=== PATIENT | male | born 1965 | race Hispanic/Latino ===

== ENCOUNTER 2017-09-07 13:59 | Inpatient (IN) | payer MEDICARE ==
[~2017-09-07] VITALS: Ht 170.2 cm; Wt 48.3 kg
[~2017-09-07 13:59] MED LIST: CYAN10007 IM; FOLI1TAB15 PO; GABA-531 JT; HYDR2TAB5 PO; IRON1CAP3 PO; LACT10SO9 PO; LORA0.5T2 PO; METO5TAB2 PO; MIDO5TAB PO; TRAM50TA4 PEG
[2017-09-07] MEDS ORDERED: SODIUM CHLORIDE 0.9% 1000ML 1,000 ML IV ONE (14:52)
[2017-09-07] MEDS ORDERED: HYDROMORPHONE 1 MG/1 ML AMP ONE (14:52)
[2017-09-07] MEDS ORDERED: ONDANSETRON HCL 4 MG/2 ML VIAL ONE (14:52)
[2017-09-07 15:01] LABS: BASOPHILS % (AUTO) 0.4 % (0.0-5.0); EOSINOPHILS % (AUTO) 0.2 % (0.0-8.0); HEMATOCRIT 25.4 % (42-54); LYMPHOCYTES % (AUTO) 8.5 % (21.0-51.0); MEAN CORPUSCULAR HEMOGLOBIN 32.9 pg (27.0-33.0); MEAN CORPUSCULAR HGB CONC 33.4 g/dL (32.0-36.0); MEAN CORPUSCULAR VOLUME 98.5 fL (79-99); MONOCYTES % (AUTO) 7.6 % (3.0-13.0); NEUTROPHILS % (AUTO) 83.3 % (40.0-77.0); PLATELET COUNT (AUTO) 332 K/uL (130-400); RED BLOOD CELL COUNT(AUTO) 2.58 MIL/uL (4.50-6.20); RED CELL DISTRIBUTION WIDTH 14.4 % (11.0-15.5)
[2017-09-07 15:12] LABS: CARBON DIOXIDE 33 mmol/L (21-32); CHLORIDE 103 mmol/L (101-111); CREATININE 0.4 mg/dL (0.5-1.5); GLOMERULAR FILTR. RATE CALC 243 mL/min (>60); GLUCOSE,RANDOM 79 mg/dL (70-105); POTASSIUM 3.3 mmol/L (3.5-5.1); SODIUM SERUM 138 mmol/L (136-145); UREA NITROGEN, BLOOD 15 mg/dL (7-18)
[2017-09-07 15:16] LABS: ALANINE AMINOTRANSFERASE 26 U/L (12-78); ALBUMIN 1.4 g/dL (3.5-5.0); AMYLASE 21 U/L (25-115); ASPARTATE AMINOTRANSFERASE 34 U/L (10-37); BILIRUBIN,TOTAL 0.2 mg/dL (0.2-1.0); LIPASE < 50 U/L (114-286); TOTAL PROTEIN, SERUM 6.1 g/dL (6.0-8.3)
[2017-09-07] MEDS ORDERED: IOPAMIDOL-370 75 ML VIAL IV ONE (15:17)
[2017-09-07] MEDS ORDERED: CEFEPIME HCL 1 GM VIAL ONE (15:37)
[2017-09-07] MEDS ORDERED: LEVOFLOXACIN 500 MG/D5W 100 ML 100 ML ONE (15:38)
[2017-09-07 16:42] LABS: APPEARANCE,URINE Clear (CLEAR); BILIRUBIN,URINE Negative (NEGATIVE); COLOR,URINE Yellow (YELLOW); GLUCOSE, URINE (UA) Negative (NEGATIVE); KETONES,URINE Negative (NEGATIVE); LEUKOCYTE ESTERASE ,URINE Negative (NEGATIVE); NITRATE,URINE Negative (NEGATIVE); OCCULT BLOOD,URINE Negative (NEGATIVE); PH,URINE >=9.0 (5.0-8.0); PROTEIN,URINE Negative (NEGATIVE); UROBILINOGEN,URINE 0.2 mg/dL (0.2-1.0)
[2017-09-07 16:55] LABS: INR 0.97 (0.85-1.15); PARTIAL THROMBOPLASTIN TIME 38.7 SEC (26.3-35.5); PROTHROMBIN TIME 10.2 SEC (9.6-11.6)
[2017-09-07] MEDS ORDERED: HYDROMORPHONE 4MG/ML 1ML VIAL ONE (17:06)
[2017-09-07] MEDS ORDERED: MAG HYDROX/AL HYDROX/SIMETH ES 30 ML SUSP UDCUP PO PRN (18:00)
[2017-09-07] MEDS ORDERED: HYDROMORPHONE 1 MG/1 ML AMP IV PRN (18:00)
[2017-09-07] MEDS ORDERED: ACETAMINOPHEN 325 MG TAB PO PRN ×2 (18:00)
[2017-09-07] MEDS ORDERED: GUAIFENESIN-DM 200/20 MG 10 ML PO PRN (18:00)
[2017-09-07 20:05] VITALS: BP 129/88
[2017-09-07] MEDS ORDERED: MEPERIDINE-PF 25 MG/ML SYG IVP PRN (21:30)
[2017-09-07] MEDS: FAMOTIDINE/PF 20 MG/2 ML VIAL IV SCH (22:12)
[2017-09-07] MEDS ORDERED: POTASSIUM CHLORIDE 20 MEQ ERTAB PO PRN (23:00)
[2017-09-07] MEDS ORDERED: POTASSIUM CHLORIDE 10% ELIXIR 20 MEQ/15 ML UDCUP PO PRN (23:00)
[2017-09-07] MEDS ORDERED: LIDOCAINE HCL-MPF 1% 2ML VIAL IVP PRN (23:00)
[2017-09-07] MEDS: MORPHINE SULFATE 2 MG/ML 1ML SYG IVP PRN (23:47)
[2017-09-07 23:51] VITALS: BP 125/83
[2017-09-08] MEDS ORDERED: METOCLOPRAMIDE 5 MG TABLET PO PRN
[2017-09-08] MEDS ORDERED: TRAMADOL HCL 50 MG TABLET PO PRN
[2017-09-08] MEDS: LORAZEPAM 0.5 MG TABLET PO PRN ×3 (01:42→23:44)
[2017-09-08] MEDS: IPRATROPIUM/ALBUTEROL SULFATE 3 ML SOLUTION IH SCH ×6 (02:19→22:53)
[2017-09-08 03:43] VITALS: BP 125/83
[2017-09-08] MEDS: MORPHINE SULFATE 2 MG/ML 1ML SYG IVP PRN ×3 (03:57→13:51)
[2017-09-08 04:08] LABS: BASOPHILS % (AUTO) 0.5 % (0.0-5.0); EOSINOPHILS % (AUTO) 0.4 % (0.0-8.0); HEMATOCRIT 23.8 % (42-54); LYMPHOCYTES % (AUTO) 9.4 % (21.0-51.0); MEAN CORPUSCULAR HEMOGLOBIN 34.4 pg (27.0-33.0); MEAN CORPUSCULAR HGB CONC 34.8 g/dL (32.0-36.0); MEAN CORPUSCULAR VOLUME 98.8 fL (79-99); MONOCYTES % (AUTO) 10.1 % (3.0-13.0); NEUTROPHILS % (AUTO) 79.6 % (40.0-77.0); PLATELET COUNT (AUTO) 330 K/uL (130-400); RED BLOOD CELL COUNT(AUTO) 2.41 MIL/uL (4.50-6.20); RED CELL DISTRIBUTION WIDTH 14.3 % (11.0-15.5); WHITE BLOOD COUNT (AUTO) 6.1 K/uL (4.8-10.8)
[2017-09-08 04:19] LABS: CREATININE 0.5 mg/dL (0.5-1.5); POTASSIUM 3.4 mmol/L (3.5-5.1)
[2017-09-08 04:31] LABS: B-TYPE NATRIURETIC PEPTIDE 97 pg/mL (0-100)
[2017-09-08] MEDS: POTASSIUM CHLORIDE 20MEQ/100ML 100 ML IV PRN (06:46)
[2017-09-08 07:18] VITALS: BP 133/86
[2017-09-08] MEDS: LEVOFLOXACIN 500 MG/D5W 100 ML 100 ML IV SCH (08:23)
[2017-09-08] MEDS: FAMOTIDINE/PF 20 MG/2 ML VIAL IV SCH ×2 (08:24→21:02)
[2017-09-08] MEDS: GABAPENTIN 300 MG CAPSULE PO SCH (08:27)
[2017-09-08] MEDS: IRON POLYSACCHARIDES COMPLEX 150 MG CAPSULE PO SCH (08:27)
[2017-09-08] MEDS: FOLIC ACID 1 MG TABLET PO SCH (08:27)
[2017-09-08] MEDS ORDERED: SODIUM CHLORIDE 0.9% 500ML 500 ML IV ONE (08:30)
[2017-09-08] MEDS: ONDANSETRON HCL 4 MG/2 ML VIAL IV PRN ×2 (08:35→13:51)
[2017-09-08] MEDS: TRAMADOL HCL 50 MG TABLET PO PRN ×3 (10:13→23:45)
[2017-09-08] MEDS: LORAZEPAM 2 MG/ML 1 ML VIAL IVP PRN ×2 (10:27→16:42)
[2017-09-08 11:15] VITALS: BP 113/76
[2017-09-08] MEDS ORDERED: LEVOFLOXACIN 500 MG/D5W 100 ML 100 ML IV SCH (15:00)
[2017-09-08 16:30] VITALS: BP 123/76
[2017-09-08 16:52] LABS: APPEARANCE BODY FLUID CLEAR (CLEAR); COLOR,BODY FLUID LT YELLOW (LT YELLOW); SPECIMENTYPE,BODY FLUID RT THORACENTESIS; TOTAL VOLUME,BODY FLUID 800 mL
[2017-09-08 16:54] LABS: PH, BODY FLUID 8
[2017-09-08 17:02] LABS: BODY FLUID RBC 50 /cu. mm.; BODY FLUID WBC 69 /cu. mm.
[2017-09-08 17:07] LABS: GLUCOSE,BODY FLUID 123 mg/dL (1-40)
[2017-09-08 17:16] LABS: BF LYMPHOCYTE 27 %; BF MESOTHELIAL 1 %; BF MONOCYTE 45 %
[2017-09-08] MEDS ORDERED: IRON POLYSACCHARIDES COMPLEX 150 MG CAPSULE PO SCH (17:30)
[2017-09-08 19:30] VITALS: BP 115/80
[2017-09-08] MEDS: MORPHINE SULFATE 4 MG/1ML SYG IVP PRN (21:05)
[2017-09-09 00:15] VITALS: BP 115/81
[2017-09-09] MEDS: MORPHINE SULFATE 2 MG/ML 1ML SYG IVP PRN ×3 (01:34→21:32)
[2017-09-09] MEDS: IPRATROPIUM/ALBUTEROL SULFATE 3 ML SOLUTION IH SCH ×5 (01:54→19:33)
[2017-09-09 04:00] VITALS: BP 122/82
[2017-09-09 04:01] LABS: BASOPHILS % (AUTO) 0.2 % (0.0-5.0); EOSINOPHILS % (AUTO) 0.3 % (0.0-8.0); HEMATOCRIT 25.1 % (42-54); LYMPHOCYTES % (AUTO) 8.6 % (21.0-51.0); MEAN CORPUSCULAR HEMOGLOBIN 33.3 pg (27.0-33.0); MEAN CORPUSCULAR HGB CONC 33.8 g/dL (32.0-36.0); MEAN CORPUSCULAR VOLUME 98.4 fL (79-99); MONOCYTES % (AUTO) 9.5 % (3.0-13.0); NEUTROPHILS % (AUTO) 81.4 % (40.0-77.0); PLATELET COUNT (AUTO) 391 K/uL (130-400); RED BLOOD CELL COUNT(AUTO) 2.55 MIL/uL (4.50-6.20); RED CELL DISTRIBUTION WIDTH 14.2 % (11.0-15.5); WHITE BLOOD COUNT (AUTO) 6.3 K/uL (4.8-10.8)
[2017-09-09 04:04] LABS: CREATININE 0.5 mg/dL (0.5-1.5); POTASSIUM 3.6 mmol/L (3.5-5.1)
[2017-09-09 04:15] LABS: B-TYPE NATRIURETIC PEPTIDE 54 pg/mL (0-100)
[2017-09-09 07:00] VITALS: BP 111/76
[2017-09-09] MEDS: LEVOFLOXACIN 500 MG/D5W 100 ML 100 ML IV SCH (08:56)
[2017-09-09] MEDS: GABAPENTIN 300 MG CAPSULE PO SCH (08:57)
[2017-09-09] MEDS: FOLIC ACID 1 MG TABLET PO SCH (08:57)
[2017-09-09] MEDS: IRON POLYSACCHARIDES COMPLEX 150 MG CAPSULE PO SCH (08:57)
[2017-09-09] MEDS: TRAMADOL HCL 50 MG TABLET PO PRN (08:57)
[2017-09-09] MEDS: LORAZEPAM 2 MG/ML 1 ML VIAL IVP PRN ×3 (08:58→23:14)
[2017-09-09] MEDS: FAMOTIDINE/PF 20 MG/2 ML VIAL IV SCH ×2 (08:58→21:32)
[2017-09-09] MEDS: ENOXAPARIN SODIUM 40 MG/0.4 ML SYRINGE SQ SCH (09:00)
[2017-09-09] MEDS: MORPHINE SULFATE 4 MG/1ML SYG IVP PRN (10:42)
[2017-09-09] MEDS: POTASSIUM CHLORIDE 20MEQ/100ML 100 ML IV PRN (10:43)
[2017-09-09 11:00] VITALS: BP 113/81
[2017-09-09] MEDS: HYDROMORPHONE HCL 2 MG/ML VIAL IVP PRN ×2 (13:18→18:35)
[2017-09-09 16:00] VITALS: BP 104/76
[2017-09-09 20:58] VITALS: BP 110/76
[2017-09-10 00:16] VITALS: BP 122/81
[2017-09-10] MEDS: HYDROMORPHONE HCL 2 MG/ML VIAL IVP PRN ×3 (01:23→18:02)
[2017-09-10] MEDS: MORPHINE SULFATE 2 MG/ML 1ML SYG IVP PRN (03:47)
[2017-09-10 04:47] VITALS: BP 110/75
[2017-09-10] MEDS: IPRATROPIUM/ALBUTEROL SULFATE 3 ML SOLUTION IH SCH ×4 (05:47→21:35)
[2017-09-10] MEDS: LORAZEPAM 2 MG/ML 1 ML VIAL IVP PRN ×3 (06:50→21:26)
[2017-09-10 06:56] LABS: BASOPHILS % (AUTO) 0.3 % (0.0-5.0); EOSINOPHILS % (AUTO) 1.1 % (0.0-8.0); HEMATOCRIT 22.8 % (42-54); LYMPHOCYTES % (AUTO) 8.9 % (21.0-51.0); MEAN CORPUSCULAR HEMOGLOBIN 35.2 pg (27.0-33.0); MEAN CORPUSCULAR HGB CONC 35.7 g/dL (32.0-36.0); MEAN CORPUSCULAR VOLUME 98.7 fL (79-99); MONOCYTES % (AUTO) 10.1 % (3.0-13.0); NEUTROPHILS % (AUTO) 79.6 % (40.0-77.0); PLATELET COUNT (AUTO) 363 K/uL (130-400); RED BLOOD CELL COUNT(AUTO) 2.31 MIL/uL (4.50-6.20); RED CELL DISTRIBUTION WIDTH 14.3 % (11.0-15.5); WHITE BLOOD COUNT (AUTO) 7.2 K/uL (4.8-10.8)
[2017-09-10 07:00] VITALS: BP 105/75
[2017-09-10 07:23] LABS: CREATININE 0.4 mg/dL (0.5-1.5); POTASSIUM 3.6 mmol/L (3.5-5.1)
[2017-09-10 07:34] LABS: B-TYPE NATRIURETIC PEPTIDE 37 pg/mL (0-100)
[2017-09-10] MEDS: LEVOFLOXACIN 500 MG/D5W 100 ML 100 ML IV SCH (09:14)
[2017-09-10] MEDS: GABAPENTIN 300 MG CAPSULE PO SCH (09:15)
[2017-09-10] MEDS: MORPHINE SULFATE 4 MG/1ML SYG IVP PRN ×2 (09:15→13:42)
[2017-09-10] MEDS: FAMOTIDINE/PF 20 MG/2 ML VIAL IV SCH ×2 (09:15→21:25)
[2017-09-10] MEDS: ENOXAPARIN SODIUM 40 MG/0.4 ML SYRINGE SQ SCH (09:16)
[2017-09-10] MEDS: FOLIC ACID 1 MG TABLET PO SCH (09:16)
[2017-09-10] MEDS: IRON POLYSACCHARIDES COMPLEX 150 MG CAPSULE PO SCH (09:16)
[2017-09-10 11:00] VITALS: BP 105/73
[2017-09-10 15:37] VITALS: BP 100/71
[2017-09-10] MEDS: TRAMADOL HCL 50 MG TABLET PO PRN (15:59)
[2017-09-10 20:33] VITALS: BP 105/73
[2017-09-11] VITALS (7 sets, daily range): BP systolic 102–116; BP diastolic 71–79
[2017-09-11] MEDS: HYDROMORPHONE HCL 2 MG/ML VIAL IVP PRN ×3 (02:22→12:17)
[2017-09-11] MEDS: MORPHINE SULFATE 4 MG/1ML SYG IVP PRN ×2 (04:23→10:04)
[2017-09-11] MEDS: IPRATROPIUM/ALBUTEROL SULFATE 3 ML SOLUTION IH SCH ×3 (06:20→21:35)
[2017-09-11] MEDS: LEVOFLOXACIN 500 MG/D5W 100 ML 100 ML IV SCH (10:03)
[2017-09-11] MEDS: FAMOTIDINE/PF 20 MG/2 ML VIAL IV SCH ×2 (10:04→20:28)
[2017-09-11] MEDS: GABAPENTIN 300 MG CAPSULE PO SCH (10:04)
[2017-09-11] MEDS: FOLIC ACID 1 MG TABLET PO SCH (10:04)
[2017-09-11] MEDS: LORAZEPAM 0.5 MG TABLET PO PRN (10:04)
[2017-09-11] MEDS: IRON POLYSACCHARIDES COMPLEX 150 MG CAPSULE PO SCH (10:04)
[2017-09-11] MEDS: ENOXAPARIN SODIUM 40 MG/0.4 ML SYRINGE SQ SCH (10:06)
[2017-09-11] MEDS: TRAMADOL HCL 50 MG TABLET PO SCH ×3 (13:10→20:23)
[2017-09-11] MEDS: HYDROMORPHONE HCL 2 MG/ML VIAL IVP SCH ×2 (15:59→20:24)
[2017-09-11] MEDS ORDERED: FAMOTIDINE/PF 20 MG/2 ML VIAL IV ONE (20:17)
[2017-09-12] MEDS: HYDROMORPHONE HCL 2 MG/ML VIAL IVP SCH ×6 (00:38→20:30)
[2017-09-12 03:15] VITALS: BP 112/75
[2017-09-12 03:55] LABS: HEMATOCRIT 25.6 % (42-54); MEAN CORPUSCULAR HEMOGLOBIN 33.2 pg (27.0-33.0); MEAN CORPUSCULAR HGB CONC 33.2 g/dL (32.0-36.0); MEAN CORPUSCULAR VOLUME 99.9 fL (79-99); PLATELET COUNT (AUTO) 386 K/uL (130-400); RED BLOOD CELL COUNT(AUTO) 2.56 MIL/uL (4.50-6.20); RED CELL DISTRIBUTION WIDTH 14.5 % (11.0-15.5)
[2017-09-12] MEDS: TRAMADOL HCL 50 MG TABLET PO SCH ×6 (04:00→22:08)
[2017-09-12 04:05] LABS: CREATININE 0.5 mg/dL (0.5-1.5); POTASSIUM 3.8 mmol/L (3.5-5.1)
[2017-09-12] MEDS: IPRATROPIUM/ALBUTEROL SULFATE 3 ML SOLUTION IH SCH ×3 (06:25→22:34)
[2017-09-12 08:26] VITALS: BP 101/64
[2017-09-12] MEDS: ENOXAPARIN SODIUM 40 MG/0.4 ML SYRINGE SQ SCH (08:40)
[2017-09-12] MEDS: GABAPENTIN 300 MG CAPSULE PO SCH (08:40)
[2017-09-12] MEDS: LEVOFLOXACIN 500 MG/D5W 100 ML 100 ML IV SCH (08:40)
[2017-09-12] MEDS: FAMOTIDINE/PF 20 MG/2 ML VIAL IV SCH ×2 (08:40→20:23)
[2017-09-12] MEDS: FOLIC ACID 1 MG TABLET PO SCH (08:40)
[2017-09-12] MEDS: IRON POLYSACCHARIDES COMPLEX 150 MG CAPSULE PO SCH (08:41)
[2017-09-12 11:52] VITALS: BP 102/71
[2017-09-12] MEDS: LORAZEPAM 2 MG/ML 1 ML VIAL IVP PRN ×2 (14:14→22:07)
[2017-09-12 16:00] VITALS: BP 103/74
[2017-09-12 19:00] VITALS: BP 118/76
[2017-09-12 23:00] VITALS: BP 110/75
[2017-09-13] MEDS: HYDROMORPHONE HCL 2 MG/ML VIAL IVP SCH ×6 (00:20→20:54)
[2017-09-13] MEDS: TRAMADOL HCL 50 MG TABLET PO SCH ×6 (02:07→22:21)
[2017-09-13 04:00] VITALS: BP 111/74
[2017-09-13 04:05] LABS: HEMATOCRIT 22.9 % (42-54); MEAN CORPUSCULAR HEMOGLOBIN 32.9 pg (27.0-33.0); MEAN CORPUSCULAR HGB CONC 33.3 g/dL (32.0-36.0); MEAN CORPUSCULAR VOLUME 98.8 fL (79-99); PLATELET COUNT (AUTO) 406 K/uL (130-400); RED BLOOD CELL COUNT(AUTO) 2.31 MIL/uL (4.50-6.20); RED CELL DISTRIBUTION WIDTH 14.8 % (11.0-15.5); WHITE BLOOD COUNT (AUTO) 9.4 K/uL (4.8-10.8)
[2017-09-13 04:23] LABS: CREATININE 0.5 mg/dL (0.5-1.5); POTASSIUM 3.6 mmol/L (3.5-5.1)
[2017-09-13] MEDS: IPRATROPIUM/ALBUTEROL SULFATE 3 ML SOLUTION IH SCH ×3 (06:37→22:05)
[2017-09-13 08:00] VITALS: BP 109/77
[2017-09-13] MEDS: LEVOFLOXACIN 500 MG/D5W 100 ML 100 ML IV SCH (08:11)
[2017-09-13] MEDS: IRON POLYSACCHARIDES COMPLEX 150 MG CAPSULE PO SCH (08:12)
[2017-09-13] MEDS: GABAPENTIN 300 MG CAPSULE PO SCH (08:12)
[2017-09-13] MEDS: FOLIC ACID 1 MG TABLET PO SCH (08:12)
[2017-09-13] MEDS: ENOXAPARIN SODIUM 40 MG/0.4 ML SYRINGE SQ SCH (09:00)
[2017-09-13] MEDS: LORAZEPAM 2 MG/ML 1 ML VIAL IVP PRN (09:51)
[2017-09-13] MEDS: FAMOTIDINE/PF 20 MG/2 ML VIAL IV SCH ×2 (09:51→20:54)
[2017-09-13 12:00] VITALS: BP 99/67
[2017-09-13 16:00] VITALS: BP 103/71
[2017-09-13 19:00] VITALS: BP 110/76
[2017-09-13] MEDS: ZOLPIDEM TARTRATE 5 MG TAB PO SCH (20:53)
[2017-09-14] VITALS (7 sets, daily range): BP systolic 104–132; BP diastolic 70–84
[2017-09-14] MEDS: TRAMADOL HCL 50 MG TABLET PO SCH ×6 (02:43→22:13)
[2017-09-14] MEDS: HYDROMORPHONE HCL 2 MG/ML VIAL IVP SCH ×6 (02:44→20:32)
[2017-09-14 04:02] LABS: HEMATOCRIT 21.4 % (42-54); MEAN CORPUSCULAR HEMOGLOBIN 33.9 pg (27.0-33.0); MEAN CORPUSCULAR HGB CONC 34.1 g/dL (32.0-36.0); MEAN CORPUSCULAR VOLUME 99.6 fL (79-99); PLATELET COUNT (AUTO) 387 K/uL (130-400); RED BLOOD CELL COUNT(AUTO) 2.15 MIL/uL (4.50-6.20); RED CELL DISTRIBUTION WIDTH 14.5 % (11.0-15.5); WHITE BLOOD COUNT (AUTO) 9.1 K/uL (4.8-10.8)
[2017-09-14 04:25] LABS: CREATININE 0.5 mg/dL (0.5-1.5); POTASSIUM 3.6 mmol/L (3.5-5.1)
[2017-09-14] MEDS: IPRATROPIUM/ALBUTEROL SULFATE 3 ML SOLUTION IH SCH ×3 (07:04→22:05)
[2017-09-14] MEDS: ENOXAPARIN SODIUM 40 MG/0.4 ML SYRINGE SQ SCH (08:18)
[2017-09-14] MEDS: FOLIC ACID 1 MG TABLET PO SCH (08:18)
[2017-09-14] MEDS: IRON POLYSACCHARIDES COMPLEX 150 MG CAPSULE PO SCH (08:18)
[2017-09-14] MEDS: FAMOTIDINE/PF 20 MG/2 ML VIAL IV SCH ×2 (08:18→22:04)
[2017-09-14] MEDS: GABAPENTIN 300 MG CAPSULE PO SCH (08:18)
[2017-09-14] MEDS: LORAZEPAM 2 MG/ML 1 ML VIAL IVP PRN (19:00)
[2017-09-14] MEDS: ZOLPIDEM TARTRATE 5 MG TAB PO SCH (22:04)
[2017-09-15] MEDS: HYDROMORPHONE HCL 2 MG/ML VIAL IVP SCH ×6 (00:33→20:13)
[2017-09-15] MEDS: TRAMADOL HCL 50 MG TABLET PO SCH ×6 (01:51→22:02)
[2017-09-15 04:06] VITALS: BP 106/75
[2017-09-15 05:23] LABS: HEMATOCRIT 21.2 % (42-54)
[2017-09-15] MEDS: IPRATROPIUM/ALBUTEROL SULFATE 3 ML SOLUTION IH SCH ×3 (07:06→18:52)
[2017-09-15 08:28] VITALS: BP 108/78
[2017-09-15] MEDS: FAMOTIDINE/PF 20 MG/2 ML VIAL IV SCH ×2 (09:14→20:13)
[2017-09-15] MEDS: IRON POLYSACCHARIDES COMPLEX 150 MG CAPSULE PO SCH (09:16)
[2017-09-15] MEDS: FOLIC ACID 1 MG TABLET PO SCH (09:17)
[2017-09-15] MEDS: GABAPENTIN 300 MG CAPSULE PO SCH (09:17)
[2017-09-15] MEDS: ENOXAPARIN SODIUM 40 MG/0.4 ML SYRINGE SQ SCH (09:18)
[2017-09-15 11:34] VITALS: BP 105/73
[2017-09-15] MEDS: LORAZEPAM 0.5 MG TABLET PO PRN ×2 (13:49→18:56)
[2017-09-15] MEDS ORDERED: VANCOMYCIN PROTOCOL PER PHARMACY IV SCH (14:45)
[2017-09-15] MEDS ORDERED: COMPOUND IV REFRIGERATED 1 EACH IVSOLN MISC PRN (15:15)
[2017-09-15 15:44] VITALS: BP 101/66
[2017-09-15] MEDS: ZOSYN 3.375GM+NS 50ML 50 ML IV SCH ×2 (16:45→22:54)
[2017-09-15] MEDS: VANCOMYCIN 750MG + NS 250 ML IV SCH ×2 (18:59)
[2017-09-15 19:00] VITALS: BP 117/74
[2017-09-15] MEDS: ZOLPIDEM TARTRATE 5 MG TAB PO SCH (20:13)
[2017-09-15] MEDS ORDERED: SODIUM CHLORIDE 0.9% 250 ML IV ONE (22:22)
[2017-09-15] MEDS ORDERED: SODIUM CHLORIDE 0.9% 250 ML IV SCH (22:30)
[2017-09-15] MEDS ORDERED: ZOSYN 3.375GM+NS 50ML 50 ML IV ONE (22:46)
[2017-09-15 23:00] VITALS: BP 109/73
[2017-09-16] MEDS: HYDROMORPHONE HCL 2 MG/ML VIAL IVP SCH ×6 (00:07→20:08)
[2017-09-16] MEDS ORDERED: ZOSYN 3.375GM+NS 50ML 50 ML IV ONE (01:57)
[2017-09-16] MEDS: TRAMADOL HCL 50 MG TABLET PO SCH ×6 (01:59→22:00)
[2017-09-16 03:00] VITALS: BP 120/76
[2017-09-16 04:19] LABS: HEMATOCRIT 25.8 % (42-54)
[2017-09-16 04:28] LABS: CREATININE 0.4 mg/dL (0.5-1.5); POTASSIUM 3.7 mmol/L (3.5-5.1)
[2017-09-16] MEDS: ZOSYN 3.375GM+NS 50ML 50 ML IV SCH ×3 (06:45→22:43)
[2017-09-16] MEDS: IPRATROPIUM/ALBUTEROL SULFATE 3 ML SOLUTION IH SCH ×3 (07:12→18:44)
[2017-09-16] MEDS: FAMOTIDINE/PF 20 MG/2 ML VIAL IV SCH ×2 (08:00→20:08)
[2017-09-16] MEDS: VANCOMYCIN 750MG + NS 250 ML IV SCH ×4 (08:01→20:09)
[2017-09-16] MEDS: FOLIC ACID 1 MG TABLET PO SCH (08:02)
[2017-09-16] MEDS: IRON POLYSACCHARIDES COMPLEX 150 MG CAPSULE PO SCH (08:02)
[2017-09-16] MEDS: GABAPENTIN 300 MG CAPSULE PO SCH (08:02)
[2017-09-16] MEDS: ENOXAPARIN SODIUM 40 MG/0.4 ML SYRINGE SQ SCH (08:03)
[2017-09-16 09:03] VITALS: BP 116/78
[2017-09-16] MEDS: LORAZEPAM 0.5 MG TABLET PO PRN (09:39)
[2017-09-16 11:48] VITALS: BP 107/73
[2017-09-16 15:48] VITALS: BP 122/85
[2017-09-16] MEDS: LACTULOSE 20 GM/30 ML UDCUP PO PRN (15:48)
[2017-09-16 19:00] VITALS: BP 107/70
[2017-09-16] MEDS: ZOLPIDEM TARTRATE 5 MG TAB PO SCH (20:08)
[2017-09-16 23:00] VITALS: BP 106/71
[2017-09-17] MEDS: HYDROMORPHONE HCL 2 MG/ML VIAL IVP SCH ×7 (00:02→23:57)
[2017-09-17] MEDS: TRAMADOL HCL 50 MG TABLET PO SCH ×6 (02:00→22:13)
[2017-09-17 03:00] VITALS: BP 108/72
[2017-09-17 06:24] LABS: MEAN CORPUSCULAR HEMOGLOBIN 31.7 pg (27.0-33.0); MEAN CORPUSCULAR HGB CONC 33.7 g/dL (32.0-36.0); MEAN CORPUSCULAR VOLUME 93.9 fL (79-99); PLATELET COUNT (AUTO) 354 K/uL (130-400); RED BLOOD CELL COUNT(AUTO) 2.77 MIL/uL (4.50-6.20); RED CELL DISTRIBUTION WIDTH 16.8 % (11.0-15.5); WHITE BLOOD COUNT (AUTO) 7.5 K/uL (4.8-10.8)
[2017-09-17] MEDS: ONDANSETRON HCL 4 MG/2 ML VIAL IV PRN ×2 (06:53→21:22)
[2017-09-17] MEDS: ZOSYN 3.375GM+NS 50ML 50 ML IV SCH (06:53)
[2017-09-17] MEDS: LORAZEPAM 0.5 MG TABLET PO PRN ×2 (07:04→21:22)
[2017-09-17] MEDS: IPRATROPIUM/ALBUTEROL SULFATE 3 ML SOLUTION IH SCH ×3 (07:06→18:44)
[2017-09-17 08:14] VITALS: BP 106/69
[2017-09-17] MEDS: FAMOTIDINE/PF 20 MG/2 ML VIAL IV SCH ×2 (10:12→19:56)
[2017-09-17] MEDS: FOLIC ACID 1 MG TABLET PO SCH (10:13)
[2017-09-17] MEDS: GABAPENTIN 300 MG CAPSULE PO SCH (10:14)
[2017-09-17] MEDS: IRON POLYSACCHARIDES COMPLEX 150 MG CAPSULE PO SCH (10:14)
[2017-09-17] MEDS: ENOXAPARIN SODIUM 40 MG/0.4 ML SYRINGE SQ SCH (10:16)
[2017-09-17 11:12] VITALS: BP 116/79
[2017-09-17 16:41] VITALS: BP 118/71
[2017-09-17 19:00] VITALS: BP 121/80
[2017-09-17] MEDS: ZOLPIDEM TARTRATE 5 MG TAB PO SCH (21:22)
[2017-09-17 23:00] VITALS: BP 119/82
[2017-09-18] MEDS: TRAMADOL HCL 50 MG TABLET PO SCH ×6 (02:06→22:08)
[2017-09-18 03:00] VITALS: BP 109/72
[2017-09-18] MEDS: HYDROMORPHONE HCL 2 MG/ML VIAL IVP SCH ×5 (03:59→20:17)
[2017-09-18] MEDS: IPRATROPIUM/ALBUTEROL SULFATE 3 ML SOLUTION IH SCH ×3 (06:10→21:12)
[2017-09-18] MEDS: LORAZEPAM 0.5 MG TABLET PO PRN ×3 (06:41→18:20)
[2017-09-18] MEDS: ONDANSETRON HCL 4 MG/2 ML VIAL IV PRN (06:41)
[2017-09-18 07:00] VITALS: BP 119/80
[2017-09-18] MEDS: FAMOTIDINE/PF 20 MG/2 ML VIAL IV SCH ×2 (08:14→20:16)
[2017-09-18] MEDS: IRON POLYSACCHARIDES COMPLEX 150 MG CAPSULE PO SCH (08:14)
[2017-09-18] MEDS: GABAPENTIN 300 MG CAPSULE PO SCH (08:14)
[2017-09-18] MEDS: FOLIC ACID 1 MG TABLET PO SCH (08:14)
[2017-09-18] MEDS: ENOXAPARIN SODIUM 40 MG/0.4 ML SYRINGE SQ SCH (08:15)
[2017-09-18 11:00] VITALS: BP 118/81
[2017-09-18] MEDS: LACTULOSE 20 GM/30 ML UDCUP PO PRN (13:28)
[2017-09-18 16:00] VITALS: BP 117/80
[2017-09-18 20:00] VITALS: BP 122/79
[2017-09-18] MEDS: ZOLPIDEM TARTRATE 5 MG TAB PO SCH (20:16)
[2017-09-18 23:55] VITALS: BP 121/80
[2017-09-19] MEDS: HYDROMORPHONE HCL 2 MG/ML VIAL IVP SCH ×6 (01:02→20:02)
[2017-09-19] MEDS: TRAMADOL HCL 50 MG TABLET PO SCH ×6 (02:40→22:07)
[2017-09-19 04:00] VITALS: BP 116/78
[2017-09-19] MEDS: IPRATROPIUM/ALBUTEROL SULFATE 3 ML SOLUTION IH SCH ×3 (06:13→21:43)
[2017-09-19] MEDS: LORAZEPAM 0.5 MG TABLET PO PRN ×4 (06:25→17:44)
[2017-09-19] MEDS: ONDANSETRON HCL 4 MG/2 ML VIAL IV PRN (06:36)
[2017-09-19 07:00] VITALS: BP 107/72
[2017-09-19] MEDS: FOLIC ACID 1 MG TABLET PO SCH (07:57)
[2017-09-19] MEDS: IRON POLYSACCHARIDES COMPLEX 150 MG CAPSULE PO SCH (07:58)
[2017-09-19] MEDS: FAMOTIDINE/PF 20 MG/2 ML VIAL IV SCH ×2 (07:58→20:01)
[2017-09-19] MEDS: ENOXAPARIN SODIUM 40 MG/0.4 ML SYRINGE SQ SCH (07:58)
[2017-09-19] MEDS: GABAPENTIN 300 MG CAPSULE PO SCH (07:59)
[2017-09-19 11:00] VITALS: BP 123/81
[2017-09-19 16:03] VITALS: BP 111/75
[2017-09-19 20:00] VITALS: BP 116/78
[2017-09-19] MEDS: ZOLPIDEM TARTRATE 5 MG TAB PO SCH (22:07)
[2017-09-19 23:55] VITALS: BP 123/75
[2017-09-20] MEDS: HYDROMORPHONE HCL 2 MG/ML VIAL IVP SCH ×6 (00:10→20:27)
[2017-09-20] MEDS: TRAMADOL HCL 50 MG TABLET PO SCH ×6 (02:06→23:01)
[2017-09-20 04:00] VITALS: BP 121/78
[2017-09-20] MEDS: ONDANSETRON HCL 4 MG/2 ML VIAL IV PRN (05:12)
[2017-09-20] MEDS: LORAZEPAM 0.5 MG TABLET PO PRN ×3 (05:12→18:12)
[2017-09-20 05:52] LABS: HEMATOCRIT 27.5 % (42-54); MEAN CORPUSCULAR HEMOGLOBIN 32.7 pg (27.0-33.0); MEAN CORPUSCULAR HGB CONC 34.2 g/dL (32.0-36.0); MEAN CORPUSCULAR VOLUME 95.9 fL (79-99); PLATELET COUNT (AUTO) 365 K/uL (130-400); RED BLOOD CELL COUNT(AUTO) 2.87 MIL/uL (4.50-6.20); RED CELL DISTRIBUTION WIDTH 15.7 % (11.0-15.5); WHITE BLOOD COUNT (AUTO) 8.2 K/uL (4.8-10.8)
[2017-09-20 06:17] LABS: CREATININE 0.4 mg/dL (0.5-1.5); POTASSIUM 3.9 mmol/L (3.5-5.1)
[2017-09-20] MEDS: IPRATROPIUM/ALBUTEROL SULFATE 3 ML SOLUTION IH SCH ×3 (07:21→22:11)
[2017-09-20 07:55] VITALS: BP 124/82
[2017-09-20] MEDS: FAMOTIDINE/PF 20 MG/2 ML VIAL IV SCH ×2 (08:58→20:26)
[2017-09-20] MEDS: GABAPENTIN 300 MG CAPSULE PO SCH (08:58)
[2017-09-20] MEDS: FOLIC ACID 1 MG TABLET PO SCH (08:58)
[2017-09-20] MEDS: ENOXAPARIN SODIUM 40 MG/0.4 ML SYRINGE SQ SCH (09:03)
[2017-09-20] MEDS: IRON POLYSACCHARIDES COMPLEX 150 MG CAPSULE PO SCH (09:04)
[2017-09-20 12:21] VITALS: BP 112/75
[2017-09-20 14:42] VITALS: BP 116/77
[2017-09-20 16:38] VITALS: BP 113/78
[2017-09-20 20:00] VITALS: BP 120/81
[2017-09-20] MEDS: ZOLPIDEM TARTRATE 5 MG TAB PO SCH (23:00)
[2017-09-21] VITALS: BP 118/75
[2017-09-21] MEDS: HYDROMORPHONE HCL 2 MG/ML VIAL IVP SCH ×4 (01:15→12:18)
[2017-09-21] MEDS: TRAMADOL HCL 50 MG TABLET PO SCH ×2 (03:07→07:23)
[2017-09-21] MEDS: LORAZEPAM 0.5 MG TABLET PO PRN (03:12)
[2017-09-21 04:00] VITALS: BP 121/78
[2017-09-21] MEDS: IPRATROPIUM/ALBUTEROL SULFATE 3 ML SOLUTION IH SCH ×2 (06:49→14:13)
[2017-09-21 08:00] VITALS: BP 123/83
[2017-09-21] MEDS: ENOXAPARIN SODIUM 40 MG/0.4 ML SYRINGE SQ SCH (08:55)
[2017-09-21] MEDS: FOLIC ACID 1 MG TABLET PO SCH (08:55)
[2017-09-21] MEDS: GABAPENTIN 300 MG CAPSULE PO SCH (08:55)
[2017-09-21] MEDS: IRON POLYSACCHARIDES COMPLEX 150 MG CAPSULE PO SCH (08:56)
[2017-09-21] MEDS: FAMOTIDINE/PF 20 MG/2 ML VIAL IV SCH (08:56)
[2017-09-21 11:56] VITALS: BP 118/82
[2017-09-21] MEDS ORDERED: HEPARIN SODIUM/PF 100UNIT/ML 5ML SYRINGE IV SCH (13:00)
== END 2017-09-21 14:57 | DRG 177 ==
LOC: EDH 13:59 → EDHIP 17:49 → 2AH 19:23 → 3AH 09-08 15:10
PROVIDERS: ADMIT Family Medicine; ATTEND Family Medicine
PROC: 0W993ZZ Drainage of Right Pleural Cavity, Percutaneous Approach (ICD-10-PCS; principal; 2017-09-08)
PROC: 30233N1 Transfusion of Nonautologous Red Blood Cells into Peripheral Vein, Percutaneous Approach (ICD-10-PCS; 2017-09-08)
DX: J69.0 Pneumonitis due to inhalation of food and vomit (principal); E43 Unspecified severe protein-calorie malnutrition; K31.6 Fistula of stomach and duodenum; J96.10 Chronic respiratory failure, unspecified whether with hypoxia or hypercapnia; J90 Pleural effusion, not elsewhere classified; R64 Cachexia; R18.8 Other ascites; Z99.81 Dependence on supplemental oxygen; J98.11 Atelectasis; Z68.1 Body mass index [BMI] 19.9 or less, adult; C15.9 Malignant neoplasm of esophagus, unspecified; C16.9 Malignant neoplasm of stomach, unspecified; D63.8 Anemia in other chronic diseases classified elsewhere; E87.6 Hypokalemia; E86.0 Dehydration; G47.00 Insomnia, unspecified; G62.9 Polyneuropathy, unspecified; G89.4 Chronic pain syndrome; I10 Essential (primary) hypertension; R13.10 Dysphagia, unspecified; Z66 Do not resuscitate; F41.9 Anxiety disorder, unspecified; Z51.5 Encounter for palliative care; Z74.01 Bed confinement status; Z75.1 Person awaiting admission to adequate facility elsewhere; Z87.01 Personal history of pneumonia (recurrent); Z93.4 Other artificial openings of gastrointestinal tract status; Z88.8 Allergy status to other drugs, medicaments and biological substances; Z51.11 Encounter for antineoplastic chemotherapy
CPT/HCPCS: 32555; 36415; 36430; 71045; 71250; 74177; 76700; 80048; 80053; 80202; 81003; 82150; 82945; 83615; 83690; 83880; 83986; 84157; 85025; 85027; 85610; 85730; 86850; 86900; 86901; 86922; 87071; 87205; 88108; 88305; 88341; 88342; 89051; 93005; 94640; 94664; A4218; J0692; J1170; J1642; J1650; J1956; J2060; J2175; J2270; J2405; J2543; J3370; J3480; J3490; J7030; J7040; P9016; Q9967